=== PATIENT | male | born 1945 | race Caucasian/White ===

== ENCOUNTER → 2016-09-06 | Day surgery (SDC) | payer MEDICARE ==
--- NOTE | 2016-09-05 19:30 | MH ---
cc: FAVIOLA JAMES DATE OF ADMISSION 09/06/2016 Patient for surgery on September 06, 2016 at the [facility]. 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 Patient for further excision and full-thickness skin graft after frozen section. HISTORY OF THE PRESENT ILLNESS This is an 82-year-old white male who originally was treated by myself back in October 2012 with a basal cell carcinoma involving the upper half of scapha near the helix that was excised and skin grafted. The patient did well with the graft. Subsequent to that he had a second basal cell carcinoma on the same ear right side involving the earlobe. Again this was excised successfully and with clear margins. This was in July 2014. The recent skin lesion was noted to be in the midportion of the helix, just anteriorly crossing into the antihelix and the portions of the lower scapha skin and towards the hattie and a circular excision was carried out in my office on September 01, 2016. Biopsy has come back as basal cell carcinoma. It is positive at the deep margin and lateral margins. The patient needs additional excision possibly removing portions of the cartilage as well. The patient is being scheduled for surgery at the [facility] to address this. The patient is aware of treating overall skin cancers. The frozen section process, reconstruction involving either skin graft or local flaps. He also understands the possibility of failure of reconstruction and possible treatment with open wound care or a second reconstruction and possible deformities resulting from the use of multiple donor sites as well. The patient understands the priority being the cancer resection. He wants to go ahead with more surgical treatment rather than resort to alternative treatment such as radiation therapy. The patient is otherwise medically doing reasonably well. He has longstanding atrial fibrillation. He is on aspirin for that. He has controlled hypertension. He has hypercholesterolemia. He is not diabetic. No major surgeries. No artificial joints. He is doing relatively well for his age. MEDICATIONS The patient's current medications listed: 1. Aspirin. 2. Digoxin. 3. and some other high blood pressure medication. ALLERGIES The patient is not allergic to anything. SOCIAL HISTORY Negative for smoking, alcohol or drug abuse. No history of any blood transfusions. No risk factors for HIV or hepatitis. REVIEW OF SYSTEMS He weighs 206 pounds. He is 5 feet 10 inches tall. No chronic skin, lymph node or collagen disorders. PHYSICAL EXAMINATION GENERAL: Examination shows an 82-year-old white male with stable vital signs. The patient is alert, cooperative and full oriented. He is emotionally stable. He is able to walk and ambulate by self without support. HEAD AND NECK: Clear sclerae. Pupils are equal, reactive to room light. The trachea appears in the midline. There is no gross thyromegaly. No other masses noted in the neck. Neck movements are somewhat stiff but still adequate. CHEST: The chest has good expansion with normal breathing. Normal heart sounds. Normal breath sounds. The atrial fibrillation, rate and rhythm are irregular but it does not seem to be affecting the quality of heart sounds. There is no systolic murmurs of significance. ABDOMEN: The abdomen is soft. LUNGS: The lung bess are clear to auscultation. EXTREMITIES: Upper and lower extremities are also grossly intact. SKIN: The local examination of the head and neck area, particularly the right ear lesion site shows the recent biopsy site healing slowly. The area has no acute inflammation. Most of the lesion had been taken out. No gross microscopic area noted. The base of the wound is beginning to show some granulation tissue. The rest of the area does not show any obvious lesions. IMPRESSION The clinical impression is biopsy proven basal cell carcinoma involving the right ear midportion anterior surface including the helix, antihelix and portions of the scapha and hattie. PLAN The plan is to remove the residual area with frozen section. The cartilage may need to be partially removed. The closure can be a full-thickness skin graft from the right neck if feasible. If not a wedge resection maybe needed. The patient may also benefit from a sliding antia flap. The patient's laboratory tests will be performed as per Anesthesia requirements. signed, not fully reviewed MD PARIS Zaragoza/JERRY /6:43 PM /7:09 PM LEONARD
[~2016-09-06] MED LIST: ACET325 PO; CALC-137 PO; CELE200C OR; DOFE250 PO; LACTATED RINGER'S 1000 ML INJ 1,000 ML ONE; LIDOCAINE 1%/EPINEPHrine 1:100,000 SOLN 20 ML VIAL ONE; OMEG600C2 PO; ONDANSETRON HCL 4 MG/2 ML VIAL IV PUSH ONE; PROPOFOL 200 MG/20 ML AMP IV ONE; RAMI5CAP36 PO; SIMV40TA PO; TAB-TAB PO; ceFAZolin INJ 1,000 MG VIAL ONE
--- NOTE | 2016-09-07 08:37 | MP ---
cc: FAVIOLA CHESTER M.D. DATE OF SURGERY: 09/06/2016 PREOPERATIVE DIAGNOSES Biopsy-proven basal cell carcinoma right ear midportion involving the helix, antihelix and parts of the lower scapha and hattie. POSTOPERATIVE DIAGNOSIS Biopsy-proven basal cell carcinoma right ear midportion involving the helix, antihelix and parts of the lower scapha and hattie. OPERATION Excision basal cell carcinoma right ear, 2.5 cm diameter excision, frozen section and full-thickness skin graft from the right neck. SURGEON Dr. Chester ANESTHESIA General. INDICATIONS This is a 71-year-old white male with a biopsy-proven basal cell carcinoma involving the middle of the right ear anteriorly just inside the helix going over to the hattie. He had a previous basal cell on the upper half of the scapha that had been skin grafted. Also had a basal cell on the earlobe itself that had been removed and closed. This is the third separate lesion on the right ear. The patient understands the process of excision, frozen section and skin grafting, and he is willing to go ahead with the same. PROCEDURE The patient was brought to the operating room, was given supine position. Anesthesia was started. Prep and drape was done. IV antibiotic had been given. Timeout was called and completed. The preoperative markings were reinforced. The biopsy itself is about a centimeter in diameter [place] and a new 6-7 mm margin was taken. Also it was noted that there may be an additional superficial ulcerative process towards the superior position of the new marking outline. This was included simply as a possible area to be investigated. The area was tumesced with lidocaine 1% with epinephrine. The excision was carried out starting from the periphery on the entire [place] going down to the cartilage, protecting the helical rim cartilage, going into the antihelix in front of the cartilage until about a couple of millimeters from the current biopsy site and then going deep straight through the cartilage taking out the cartilage underneath the central biopsy portion. The specimen was suture marked superior and sent for frozen section. Hemostasis was completed. The skin graft full-thickness was harvested from the right posterior neck following the folds in the neck. The graft was thinned to match the antihelical border in particular and was applied to the defect with 6-0 Prolene interrupted sutures. The donor site was closed with 4-0 Vicryl inverting sutures. The frozen section report received indicated clear margins with an additional superficial basal cell focus noted at 12 o'clock. The central portion of the tissue will be further processed for any residual basal cell in the permanent section. All the areas were cleaned and dried and sterile dressing was applied. A ycomnkl-[id number] bolster dressing was applied to the skin graft. The patient was allowed to recover from anesthesia. Intraoperative blood loss minimal. No complications. signed, not fully reviewed MD PARIS Zaragoza/ANDREW /11:24 AM /8:24 AM LEONARD
== END | disposition home or self-care (01) ==
LOC: ESDC 08:02
PROVIDERS: ATTEND Plastic Surgery
DX: C44.212 Basal cell carcinoma of skin of right ear and external auricular canal (principal)
CPT/HCPCS: 00300; 11643; 15260; 88305; 88331; J0690; J2405; J3010; J7120